=== PATIENT | male | born 1990 | race Caucasian/White ===

== ENCOUNTER 2021-01-11 13:59 | Outpatient (CLI) | payer OTHER, SELFPAY ==
[2021-01-11 16:24] LABS: Alanine Aminotransferase 29 U/L (4-50); Albumin Level 4.2 g/dL (3.5-5.1); Alkaline Phosphatase 66 U/L (38-126); Anion Gap 11 mmol/L (8-16); Aspartate Amino Transferase 27 U/L (17-59); Bilirubin,Total 0.4 mg/dL (0.2-1.3); Blood Urea Nitrogen 11 mg/dL (9-20); Calcium 9.5 mg/dL (8.4-10.2); Carbon Dioxide 26 mmol/L (22-30); Chloride 99 mmol/L (98-107); Estimated Glomerular Filt Rate > 60; Glucose 179 mg/dL (75-110); Potassium 4.3 mmol/L (3.4-5.0); Sodium 136 mmol/L (137-145)
[2021-01-11 16:44] LABS: Free T4 Free Thyroxine 1.16 ng/mL (0.78-2.19)
[2021-01-11 16:49] LABS: Creatinine Urine > 346.5 mg/dL
[2021-01-11 16:55] LABS: Thyroid Stimulating Hormone 0.158 uIU/mL (0.465-4.680); Total Triiodothyronine (T3) 1.69 NG/ML (0.97-1.69)
[2021-01-11 18:41] LABS: Microalbumin Urine Random 814.1 mg/L (0-16.7)
[2021-01-16 07:52] LABS: Thyrotropin Receptor Antibody 7.45 IU/L (<=2.00)
== END 2021-01-11 14:00 | disposition home or self-care (01) ==
LOC: ANHIMG 14:02
PROVIDERS: PCP Family Medicine; Referring Provider Internal Medicine Endocrinology, Diabetes & Metabolism; Visit Provider Internal Medicine Endocrinology, Diabetes & Metabolism
DX: R79.89 Other specified abnormal findings of blood chemistry (principal); E78.5 Hyperlipidemia, unspecified; E11.9 Type 2 diabetes mellitus without complications
CPT/HCPCS: 36415; 80053; 82043; 83519; 84439; 84443; 84480

== ENCOUNTER 2021-04-06 13:38 | Outpatient (CLI) | payer BC, SELFPAY ==
--- NOTE | ~2021-04-06 | US_ITS ---
EXAMINATION: US thyroid EXAM DATE: 04/06/2021 14:00 INDICATION: E04.1 - Nontoxic single thyroid nodule. TECHNIQUE: Multiple grayscale and Doppler images of the thyroid were obtained (by a technologist who performed the scan) and subsequently reviewed. Individual nodules and recommendations may be reporte d in accordance with TI-RADS system as designated by the 2017 ACR White Paper TI-RADS committee. The re is no prior study for comparison. FINDINGS: The right thyroid lobe measures 6.0 x 2.1 x 2.9 cm, mild to moderately enlarged. Left thyroid lobe me asures 4.8 x 1.4 x 2.0 cm, mildly enlarged. Moderately heterogeneous thyroid parenchyma. Focal right thyroid midpole nodule measuring 2.4 x 2.0 x 2.1 centimeters, solid (2 points), isoechoic (1 point), wider than tall, smooth well defined margin, containing macrocalcification(s) causing aco ustic shadowing (1 point), category TR4 for this nodule. No other definite focal nodules identified. IMPRESSION: Right thyroid lobe nodule large enough to recommend ultrasound-guided biopsy. Reviewed, dictated and finalized at location B. IMPRESSION: Right thyroid lobe nodule large enough to recommend ultrasound-guid ed biopsy.
== END 2021-04-06 13:39 | disposition home or self-care (01) ==
PROVIDERS: Visit Provider Internal Medicine Endocrinology, Diabetes & Metabolism
DX: E04.1 Nontoxic single thyroid nodule (principal); R79.89 Other specified abnormal findings of blood chemistry
CPT/HCPCS: 76536

== ENCOUNTER 2022-02-28 11:26 | Outpatient (CLI) | payer OTHER, SELFPAY ==
[2022-02-28 16:43] LABS: Anion Gap 13 mmol/L (8-16); Blood Urea Nitrogen 14 mg/dL (9-20); Calcium 9.3 mg/dL (8.4-10.2); Carbon Dioxide 21 mmol/L (22-30); Chloride 100 mmol/L (98-107); Estimated Glomerular Filt Rate > 60; Glucose 360 mg/dL (65-110); HDL Direct 41 mg/dL; Potassium 4.3 mmol/L (3.4-5.0); Sodium 134 mmol/L (137-145)
[2022-02-28 16:55] LABS: LDL Cholesterol Direct 93 mg/dL
[2022-02-28 17:10] LABS: Free T4 Free Thyroxine 1.45 ng/mL (0.78-2.19)
[2022-02-28 17:14] LABS: Thyroid Stimulating Hormone < 0.015 uIU/mL (0.465-4.680)
[2022-02-28 17:28] LABS: Creatinine Urine 67.9 mg/dL
[2022-02-28 20:49] LABS: MALB Creatinine Ratio 734.2 mg/g (0-30); Microalbumin Urine Random 498.5 mg/L (0-16.7)
[2022-03-05 14:43] LABS: Thyroid Stimulating Immunoglob <89 % baseline (<140)
== END 2022-02-28 11:27 | disposition home or self-care (01) ==
LOC: ANHWCLAB 11:29
PROVIDERS: PCP Family Medicine; Visit Provider Internal Medicine Endocrinology, Diabetes & Metabolism
DX: E11.65 Type 2 diabetes mellitus with hyperglycemia (principal); Z79.4 Long term (current) use of insulin; E78.5 Hyperlipidemia, unspecified; E05.00 Thyrotoxicosis with diffuse goiter without thyrotoxic crisis or storm
CPT/HCPCS: 36415; 80048; 82043; 83718; 83721; 84439; 84443; 84445

== ENCOUNTER 2022-06-13 08:34 | Outpatient (CLI) | payer OTHER, SELFPAY ==
--- NOTE | 2022-06-13 11:00 | NEURO_ITS ---
Impression: # Insulin dependent diabetic complains of intermittent numbness and tendency to drop left foot. # Borderline axonal neuropathy # Early neurogenic changes on needle/EMG exam. # Clinical correlation recommended. Nerve Conduction Studies Anti Sensory Summary Table Stim Site NR Peak (ms) P-T Amp (?V) Site1 Site2 Delta-P (ms) Dist (cm) Timo (m/s) Left Sup Fibular Anti Sensory (Ant Lat Mall) 14 cm 3.8 4.1 14 cm Ant Lat Mall 3.8 16.0 42 Right Sup Fibular Anti Sensory (Ant Lat Mall) 14 cm 3.7 4.6 14 cm Ant Lat Mall 3.7 16.0 43 Left Sural Anti Sensory (Lat Mall) Calf 3.4 26.2 Calf Lat Mall 3.4 16.0 47 Right Sural Anti Sensory (Lat Mall) NO RESPONSE Calf NR Calf Lat Mall 16.0 Motor Summary Table Stim Site NR Onset (ms) O-P Amp (mV) Site1 Site2 Delta-0 (ms) Dist (cm) Timo (m/s) Left Peroneal Motor (Vastus Med) Ankle 4.0 1.0 Popit Ankle 8.8 41.0 47 Popit 12.8 0.6 Right Peroneal Motor (Vastus Med) Ankle 4.1 2.2 Popit Ankle 9.2 42.0 46 Popit 13.3 1.6 Left Tibial Motor (Abd Chow Brev) Ankle 4.3 5.8 Knee Ankle 9.9 44.0 44 Knee 14.2 3.1 Right Tibial Motor (Abd Chow Brev) Ankle 4.4 4.4 Knee Ankle 10.4 42.0 40 Knee 14.8 1.8 F Wave Studies NR F-Lat (ms) L-R F-Lat (ms) Left Peroneal (Mrkrs) (EDB) 52.27 0.28 Right Peroneal (Mrkrs) (EDB) 51.99 0.28 Left Tibial (Mrkrs) (Abd Hallucis) 53.62 1.02 Right Tibial (Mrkrs) (Abd Hallucis) 52.59 1.02 EMG Side Muscle Nerve Root Ins Act Fibs Amp Dur Recrt Comment Right AntTibialis Dp Br Fibular L4-5 Nml Nml Nml >12ms Reduced Right Gastroc Tibial S1-2 Nml Nml Nml Nml Nml Right Fibularis Long Sup Br Fibular L5-S1 Nml Nml Nml Nml Nml Right Flex Dig Long Tibial L5-S2 Nml Nml Nml Nml Nml Right Ext Dig Brev Dp Br Fibular L5, S1 Nml Nml Nml >12ms Reduced Left AntTibialis Dp Br Fibular L4-5 Nml Nml Nml >12ms Reduced Left Gastroc Tibial S1-2 Nml Nml Nml Nml Nml Left Fibularis Long Sup Br Fibular L5-S1 Nml Nml Nml Nml Nml Left Flex Dig Long Tibial L5-S2 Nml Nml Nml Nml Nml Right ExtHallLong Dp Br Fibular L5, S1 Nml Nml Nml Nml Nml Right Ext Dig Long Dp Br Fibular L5-S1 Nml Nml Nml >12ms Reduced Left ExtHallLong Dp Br Fibular L5, S1 Nml Nml Nml Nml Nml Left Ext Dig Brev Dp Br Fibular L5, S1 Nml Nml Nml >12ms Reduced Left Ext Dig Long Dp Br Fibular L5-S1 Nml Nml Nml >12ms Reduced MTDD
== END 2022-06-13 08:35 | disposition home or self-care (01) ==
LOC: ANHNEURO 08:39
PROVIDERS: PCP Family Medicine; Visit Provider Family Medicine
DX: R20.9 Unspecified disturbances of skin sensation (principal); E11.65 Type 2 diabetes mellitus with hyperglycemia; Z79.4 Long term (current) use of insulin; R94.131 Abnormal electromyogram [EMG]
CPT/HCPCS: 95886; 95910

== ENCOUNTER 2022-06-17 14:01 | Outpatient (CLI) | payer OTHER, SELFPAY ==
--- NOTE | ~2022-06-17 | US_ITS ---
EXAMINATION: US thyroid DATE: 06/17/2022 15:09 INDICATION: Thyroid nodules. TECHNIQUE: Multiple ultrasound images of the thyroid were obtained. COMPARISON: Ultrasound thyroid 04/06/2021 FINDINGS: The right thyroid lobe measures 6.7 x 2.4 x 3.2 cm. The left thyroid lobe measures 4.5 x 1.6 x 1.9 c m. In the right thyroid lobe, there is a 2.4 cm solid, isoechoic, wider than tall nodule with puncta te echogenic foci and peripheral calcifications (TI-RADS TR5). IMPRESSION: 1. Stable right thyroid nodule. Ultrasound-guided fine-needle aspiration is recommended. Reviewed, dictated and finalized at location A. IMPRESSION: 1. Stable right thyroid nodule. Ultrasound-guided fine-needle aspiration is rec ommended.
== END 2022-06-17 14:02 | disposition home or self-care (01) ==
LOC: ANHIMG 14:02
PROVIDERS: PCP Family Medicine; Visit Provider Internal Medicine Endocrinology, Diabetes & Metabolism
DX: E04.1 Nontoxic single thyroid nodule (principal)
CPT/HCPCS: 76536

== ENCOUNTER 2022-06-19 10:17 | Outpatient (CLI) | payer OTHER, SELFPAY ==
--- NOTE | ~2022-06-19 | US_ITS ---
EXAMINATION: US FNA w image guidance DATE: 06/19/2022 11:16 INDICATION: Right thyroid nodule. TECHNIQUE: The procedure and its benefits and risks were discussed with the patient. Risks specifically discusse d included bleeding. The patient verbalized understanding of the risks and agreed to proceed. The nec k was prepped and draped in the usual sterile manner. 1% lidocaine was used for local anesthesia. 6 passes were made with a 25G needle into the lesion under ultrasound guidance. There were no immedia te complications. FINDINGS: Grayscale ultrasound images demonstrate needles advanced into a 2.4 cm nodule in right thyroid lobe f or biopsy. IMPRESSION: 1. Ultrasound-guided fine needle aspiration of a right thyroid nodule. Reviewed, dictated and finalized at location A.
== END 2022-06-19 10:18 | disposition home or self-care (01) ==
LOC: ANHIMG 10:18
PROVIDERS: PCP Family Medicine; Visit Provider Internal Medicine Endocrinology, Diabetes & Metabolism
DX: E04.1 Nontoxic single thyroid nodule (principal)
CPT/HCPCS: 10005; 88173; 88305

== ENCOUNTER 2022-10-07 08:49 | Outpatient (CLI) | payer OTHER, SELFPAY ==
[2022-10-07 16:42] LABS: Alanine Aminotransferase 27 U/L (6-50); Albumin Level 4.7 g/dL (3.5-5.1); Alkaline Phosphatase 86 U/L (38-126); Anion Gap 7 mmol/L (8-16); Aspartate Amino Transferase 116 U/L (17-59); Bilirubin,Total 0.5 mg/dL (0.2-1.3); Blood Urea Nitrogen 12 mg/dL (9-20); Calcium 8.9 mg/dL (8.4-10.2); Carbon Dioxide 29 mmol/L (22-30); Chloride 98 mmol/L (98-107); Cholesterol 161 mg/dL (0-200); Estimated Glomerular Filt Rate > 60; Glucose 78 mg/dL (65-110); HDL Direct 38 mg/dL; Sodium 134 mmol/L (137-145); Triglycerides 188 mg/dL (<150)
[2022-10-07 16:50] LABS: Creatinine Urine 129.5 mg/dL
[2022-10-07 16:53] LABS: LDL Cholesterol Direct 71 mg/dL
[2022-10-07 16:54] LABS: MALB Creatinine Ratio 60.7 mg/g (0-30); Microalbumin Urine Random 78.6 mg/L (0-16.7)
[2022-10-07 16:59] LABS: Free T4 Free Thyroxine 1.07 ng/mL (0.78-2.19); Vitamin D 25 Hydroxy 23.8 ng/mL
== END 2022-10-07 08:50 | disposition home or self-care (01) ==
LOC: ANHWCLAB 08:52
PROVIDERS: PCP Family Medicine; Visit Provider Nurse Practitioner Family
DX: E11.65 Type 2 diabetes mellitus with hyperglycemia (principal); R79.89 Other specified abnormal findings of blood chemistry; Z79.4 Long term (current) use of insulin
CPT/HCPCS: 36415; 80053; 80061; 82043; 82306; 82607; 84439; 84443

== ENCOUNTER 2022-10-08 08:09 | Outpatient (CLI) | payer OTHER, SELFPAY ==
--- NOTE | 2022-10-29 02:42 | WPDSLEEPSTUD ---
Sleep Study Date of Study: 10/08/22 Ordering Provider: Perico Juarez MD Interpreting Physician: Gini Root, Sleep Study Type: CPAP Titration Height: 1.8 m Weight: 117.934 kg Body Mass Index: 36.2 Neck Circumference (inches): 17.5 [place]: 14 Reason for Sleep Study HSAT on 07/06/2022 showed AHI of 42.2 with desaturation down to 73%. Sleep History The patient is a 32-year-old male with type 2 diabetes, hypertension, hyperthyroidism, depression and severe TAM that had a Pap titration study ordered by his primary care to get started on CPAP therapy. The patient frequently awakens from sleep short of breath. He constantly awakens at night with heartburn, belching or cough. He constantly snores loud enough that others complain. He frequently has trouble sleeping when he has a cold. He frequently wakes up gasping for air throughout the night. He frequently has breathing problems at night observed by himself or others. He occasionally sweats excessively at night. He occasionally has heart palpitations or irregular heartbeats during the night. He frequently falls asleep during the day. He rarely falls asleep while driving. He denies sleep paralysis, cataplexy and hypnagogic / hypnopompic hallucinations. He occasionally has trouble at school or work due to sleepiness. He denies feeling afraid of going to sleep. He denies having nightmares. He denies remembering his dreams. He occasionally has thoughts racing through his mind. He occasionally feels sad, depressed and anxious. He occasionally has muscular tension. He rarely notices parts of his body jerk. He occasionally kicks during the night. He rarely has crawling and aching feelings in his legs. He denies having leg pain during the night. He frequently grinds his teeth during sleep and constantly awakens with morning jaw pain. He denies being bothered by pain during the day and denies being awakened by pain during the night. He rarely wakes up feeling stiff in the morning. He denies waking up with sore achy muscles. He rarely wakes up with pain in the neck, spine or other joints. The patient goes to bed at 10:00 p.m. on both weekdays and weekends. The amount of time it takes for him to fall asleep is variable. He wakes up 3-4 times throughout the night to urinate. He is able fall back asleep within 15-45 minutes. He wakes up at 6:00 a.m. on weekdays and at 8:00 a.m. on the weekends. He typically gets 6 hours of sleep per night. He will stay in bed for 10 minutes after waking up in the morning. He currently lives with his parents. He does not consume any caffeinated beverages within 2 hours of bedtime. He does not engage in physical exercise before bedtime. He denies reading and watching television before falling asleep. He will take naps in the afternoon or the evening but they are not refreshing. He drinks 1-2 caffeinated beverages per day. He drinks 1 alcoholic beverage per day. He denies tobacco and recreational drug use. [facility] Past Medical History Medical History Anxiety Apnea Asthma BMI 36.0-36.9,adult Depression DM2 (diabetes mellitus, type 2) Pure hypercholesterolemia Sensation disturbance of skin Surgical History Surgical History S/P thyroid biopsy Family History Family History Father No problems noted. Mother Thyroid cancer Diabetes mellitus Heart disease Sibling Hypertension Other Family history of cardiovascular disease Family history of migraine headaches Social History Social History Smoking status: Never smoker Second hand tobacco smoke exposure: Yes Alcohol intake: current Substance use: never Substance use type: does not use Additional occupation/education comments: [employer]
[2022-10-29 03:05] VITALS: BMI 36.2
== END 2022-10-09 04:44 | disposition home or self-care (01) ==
LOC: ANHCSM 08:11
PROVIDERS: PCP Family Medicine; Visit Provider Family Medicine
DX: G47.33 Obstructive sleep apnea (adult) (pediatric) (principal)
CPT/HCPCS: 95811

== ENCOUNTER 2023-10-21 09:51 | Outpatient (CLI) | payer OTHER, SELFPAY ==
--- NOTE | ~2023-10-21 | US_ITS ---
EXAMINATION: US thyroid DATE: 10/21/2023 10:27 INDICATION: Other specified post procedural states. Graves' disease. TECHNIQUE: Multiple ultrasound images of the thyroid were obtained. COMPARISON: 06/17/2022 and 06/19/2022 FINDINGS: The right thyroid lobe measures 6.2 x 2.5 x 3.2 cm. The left thyroid lobe measures 4.0 x 1.8 x 1.9 c m. No interval change in a 2.4 cm TI RADS 5 solid isoechoic nodule with both punctate echogenic foci and partial rim calcification. This biopsy was biopsied on 06/19/2022 with pathology read as categor y II, benign. Consistent with a benign follicular nodule. No other thyroid nodules identified. IMPRESSION: 1. No interval change in a 2.4 cm TI RADS 5 right thyroid nodule with recent benign biopsy. Reviewed, dictated and finalized at location A. [employer] IMPRESSION: 1. No interval change in a 2.4 cm TI RADS 5 right thyroid nodule with recent be nign biopsy.
== END 2023-10-21 09:52 | disposition home or self-care (01) ==
PROVIDERS: PCP Family Medicine; Visit Provider Nurse Practitioner Family
DX: E04.1 Nontoxic single thyroid nodule (principal); Z98.890 Other specified postprocedural states
CPT/HCPCS: 76536